=== PATIENT | male | born 1990 | race American Indian/Alaskan Native ===

== ENCOUNTER 2021-06-27 02:35 | Emergency (ER) | payer SELFPAY ==
[2021-06-27] MEDS ORDERED: SODIUM CHLORIDE 0.9% 1000 ML 1,000 ML IV ONE (02:49)
[2021-06-27] MEDS ORDERED: diphenhydrAMINE 50 MG/ML VIAL IV ONE (02:49)
[2021-06-27] MEDS ORDERED: ONDANSETRON 4 MG/2 ML INJ IV ONE (02:49)
--- NOTE | 2021-06-27 02:54 | Emergency Department Report ---
HPI - General Time Seen by Provider: 06/27/21 02:42 - HPI HPI: Room 6 The patient is a 30-year-old male present with a chief complaint of abdominal and flank pain. Patient is a poor historian and appears intoxicated. Patient states she has a history of multiple episodes of pancreatitis and has consumed alcohol today. Patient states he came to the emergency department because he has had pain in bilateral flanks as well as his abdomen. The patient is behaving erratically occasionally screaming out and throwing himself on the floor ED Past Medical Hx - Past Medical History Additional medical history: Chronic pancreatitis - Surgical History Past Surgical History?: No - Family History Family history: no significant - Social History Smoking Status: Current Every Day Smoker Substance Use Type: None (Denies illicit drug use), Alcohol - Medications Home Medications: Home Medications Medication Instructions Recorded Confirmed Last Taken Type Sucralfate [Carafate] 1 gm PO Q6HR #120 tablet 06/27/21 Unknown Rx ED Review of Systems ROS: Stated complaint: FLANK PAIN Other details as noted in HPI Comment: Unobtainable due to pts medical conditions Physical Exam - Physical Exam Physical Exam: GENERAL: The patient is well-developed well-nourished male behaving erratically occasionally moaning out. [] HEENT: Normocephalic. Atraumatic. Extraocular motions are intact. Patient has moist mucous membranes. NECK: Supple. Trachea midline CHEST/LUNGS: Clear to auscultation. There is no respiratory distress noted. HEART/CARDIOVASCULAR: Regular. There is no tachycardia. There is no gallop rub or murmur. ABDOMEN: Abdomen is soft, with diffuse tenderness to palpation. Patient has normal bowel sounds. There is no abdominal distention. SKIN: There is no rash. There is no edema. There is no diaphoresis. NEURO: The patient is awake and alert but exhibits erratic behavior. The patient is intermittently cooperative. The patient has no focal neurologic deficits. The patient has normal speech and gait. MUSCULOSKELETAL: There is no evidence of acute injury. ED Medical Decision Making - Lab Data Result diagrams: 06/27/21 03:12 06/27/21 03:12 - Radiology Data Radiology results: report reviewed (CT abdomen pelvis), image reviewed (CT abdomen pelvis) [facility] [address] [place] [address] Cat Scan Report Signed Patient: VINICIUS OLVERA MR#: [id number] : 1990 Acct:[id number] Age/Sex: 30 / M ADM Date: 06/27/21 Loc: ED Attending Dr: Ordering Physician: PETRA MORTON MD Date of Service: 06/27/21 Procedure(s): CT abdomen pelvis wo/w con Accession Number(s): [id number] cc: PETRA MORTON MD CT ABDOMEN AND PELVIS WITHOUT AND WITH CONTRAST INDICATION: Diffuse abdominal, bilateral flank pain. TECHNIQUE: Axial CT images were obtained through the abdomen and pelvis before and after 100 [address] scans at this location are performed using CT dose reduction for ALARA by means of automated exposure control. COMPARISON: None available. FINDINGS: LOWER CHEST: No significant abnormality. LIVER: No significant abnormality. GALLBLADDER: No significant abnormality. BILE DUCTS: No significant abnormality. PANCREAS: No significant abnormality. SPLEEN: No significant abnormality. ADRENALS: No significant abnormality. RIGHT KIDNEY and URETER: No significant abnormality. LEFT KIDNEY and URETER: No significant abnormality. STOMACH and SMALL BOWEL: No significant abnormality. COLON: No significant abnormality. APPENDIX: No significant abnormality. PERITONEUM: No free fluid. No free air. No fluid collection. LYMPH NODES: No significant adenopathy. AORTA and ARTERIES: No sig nificant abnormality. IVC and VEINS: No significant abnormality. URINARY BLADDER: No significant abnormality. REPRODUCTIVE ORGANS: No significant abnormality. ADDITIONAL FINDINGS: None. SKELETAL SYSTEM: No significant abnormality. IMPRESSION: 1. No significant abnormality. Signer Name: Michael Dorman MD Signed: 06/27/2021 4:56 AM Workstation Name: [id number] Transcribed By: TL Dictated By: Michael Dorman MD Electronically Authenticated By: Michael Dorman MD Signed Date/Time: 06/27/21455 DD/ 2 TD/TT: Print Cancel - Differential Diagnosis Acute on chronic pancreatitis, renal colic, intoxication Critical care attestation.: If time is entered above; I have spent that time in minutes in the direct care of this critically ill patient, excluding procedure time. ED Disposition Clinical Impression: Generalized abdominal pain, Alcohol ingestion Disposition: 01 HOME / SELF CARE / HOMELESS Is pt being admited?: No Does the pt Need Aspirin: No Condition: Stable Instructions: Abdominal Pain, Adult Additional Instructions: Push fluids. Avoid alcohol. Return for problems. Follow-up with your regular doctor for recheck. Prescriptions: Sucralfate [Carafate] 1 gm PO Q6HR #120 tablet Referrals: IRENE ALBERTS MD [Staff Physician] - 3-5 Days PRIMARY CARE, [Primary Care Provider] - 3-5 Days
[2021-06-27] MEDS ORDERED: HALOPERIDOL LACTATE 5 MG/1 ML INJ IM ONE (03:29)
[2021-06-27 03:40] LABS: Hematocrit 48.2 % (35.5-45.6); Hemoglobin 16.2 gm/dl (11.8-15.2); Mean Corpuscular HGB Conc 34 % (32-34); Mean Corpuscular Volume 87 fl (84-94); Platelet Count 385 K/mm3 (140-440); Red Blood Count 5.52 M/mm3 (3.65-5.03); Red Cell Distribution Width 14.6 % (13.2-15.2)
[2021-06-27 03:45] LABS: Albumin 5.4 g/dL (3.9-5); Calcium 10.8 mg/dL (8.4-10.2)
--- NOTE | 2021-06-27 05:01 | Cat Scan Report ---
CT ABDOMEN AND PELVIS WITHOUT AND WITH CONTRAST INDICATION: Diffuse abdominal, bilateral flank pain. TECHNIQUE: Axial CT images were obtained through the abdomen and pelvis before and after 100 cc IV contrast. Al l CT scans at this location are performed using CT dose reduction for ALARA by means of automated exp osure control. COMPARISON: None available. FINDINGS: LOWER CHEST: No significant abnormality. LIVER: No significant abnormality. GALLBLADDER: No significant abnormality. BILE DUCTS: No significant abnormality. PANCREAS: No significant abnormality. SPLEEN: No significant abnormality. ADRENALS: No significant abnormality. RIGHT KIDNEY and URETER: No significant abnormality. LEFT KIDNEY and URETER: No significant abnormality. STOMACH and SMALL BOWEL: No significant abnormality. COLON: No significant abnormality. APPENDIX: No significant abnormality. PERITONEUM: No free fluid. No free air. No fluid collection. LYMPH NODES: No significant adenopathy. AORTA and ARTERIES: No significant abnormality. IVC and VEINS: No significant abnormality. URINARY BLADDER: No significant abnormality. REPRODUCTIVE ORGANS: No significant abnormality. ADDITIONAL FINDINGS: None. SKELETAL SYSTEM: No significant abnormality. IMPRESSION: 1. No significant abnormality. Signer Name: Michael Dorman MD Signed: 06/27/2021 4:56 AM Workstation Name: [id number]
[2021-06-27 05:04] LABS: Total Cells Counted 100
[2021-06-27 05:05] LABS: RBC Morphology Normal
[2021-06-27 05:06] LABS: Platelet Estimate Consistent w Auto
--- NOTE | 2021-06-27 09:26 | Emergency Department Report ---
Blank Doc - Documentation Documentation: I had assumed care. Patient was resting comfortably. Upon repeat evaluation, abdomen is soft and nontender. There is no rebound or guarding. He was discharged.
[2021-06-27 09:55] VITALS: BP 154/91
== END 2021-06-27 09:54 | disposition home or self-care (01) ==
LOC: ED 02:35
DX: R10.84 Generalized abdominal pain (principal); F10.129 Alcohol abuse with intoxication, unspecified; F17.200 Nicotine dependence, unspecified, uncomplicated; Y90.0 Blood alcohol level of less than 20 mg/100 ml
CPT/HCPCS: 36415; 74178; 80053; 82550; 83690; 85007; 85025; 96361; 96372; 96374; 96375; 99284; J1200; J1630; J2405; J7030; Q9967; 80320; G0480